=== PATIENT | female | born 1945 | race Caucasian/White ===

== ENCOUNTER 2017-01-02 12:43 | Inpatient (IN) | payer MEDICARE, BC ==
[~2017-01-02] VITALS: Ht 160 cm; Wt 91.0 kg
[~2017-01-02 12:43] MED LIST: LIDOCAINE 4% TOPICAL SOLUTION 50 ML ONE; LIDOCAINE GEL 2%, 5ML ONE
[2017-01-02] MEDS ORDERED: SODIUM CHLORIDE FLUSH 10ML SYR IVF ONE (13:30)
[2017-01-02] MEDS ORDERED: SODIUM CHLORIDE 0.9% 1,000ML IVBOLUS ONE ×2 (13:30→15:30)
[2017-01-02] MEDS ORDERED: CEFTRIAXONE PMX 1GM/50ML 50 ML IVPB ONE (13:30)
[2017-01-02] MEDS ORDERED: ACETAMINOPHEN 500 MG TABLET PO ONE (13:30)
[2017-01-02] MEDS ORDERED: ACETAMINOPHEN 500 MG TABLET ONE (13:34)
[2017-01-02] MEDS ORDERED: CEFTRIAXONE PMX 1GM/50ML 50 ML ONE (13:34)
[2017-01-02] MEDS ORDERED: FLUO20CA19 PO (14:07)
[2017-01-02 14:16] LABS: ASPARTATE AMINO TRANSFERASE 27 U/L (15-37); BLOOD UREA NITROGEN 19 mg/dL (7-18)
[2017-01-02] MEDS ORDERED: AZITHROMYCIN 500 MG in SODIUM CHLORIDE 0.9% 250 ML IV ONE (15:00)
[2017-01-02] MEDS: AZITHROMYCIN 500 MG in SODIUM CHLORIDE 0.9% 250 ML IV SCH (15:58)
[2017-01-02] MEDS: CEFTRIAXONE 1,000 MG in SODIUM CHLORIDE 0.9% 50 ML IV SCH (15:58)
[2017-01-02] MEDS ORDERED: ACETAMINOPHEN 325 MG TABLET PO PRN (16:00)
[2017-01-02] MEDS ORDERED: BISACODYL 10 MG SUPP PR PRN (16:00)
[2017-01-02] MEDS ORDERED: HYDROcodone/APAP 5/325 TABLET PO PRN (16:00)
[2017-01-02] MEDS ORDERED: POLYETHYLENE GLYCOL 17 GM PACKET PO PRN (16:00)
[2017-01-02] MEDS ORDERED: ONDANSETRON 2MG/ML, 2ML IVPush PRN (16:00)
[2017-01-02] MEDS ORDERED: morphine SULFATE 10 MG/ML, 1ML IVPush PRN (16:00)
[2017-01-02] MEDS ORDERED: LABETALOL 5MG/ML 40ML VIAL IVPush PRN (16:00)
[2017-01-02] MEDS ORDERED: DOCUSATE 100 MG CAPSULE PO PRN (16:00)
[2017-01-02] MEDS ORDERED: ALBUTEROL SULFATE 2.5 MG/3 ML ONE (17:04)
[2017-01-02 17:35] VITALS: BP 96/65
[2017-01-02] MEDS: methylPREDNISolone SOD SUCC 125 MG/2 ML IVPush SCH ×2 (18:02→22:07)
[2017-01-02] MEDS: NS + 20MEQ KCL 1,000 ML IV SCH (18:02)
[2017-01-02] MEDS: ENOXAPARIN 40 MG/0.4 ML SQ SCH (18:02)
[2017-01-02 20:00] VITALS: BP 111/73
[2017-01-03 02:37] VITALS: BP 118/74
[2017-01-03] MEDS: methylPREDNISolone SOD SUCC 125 MG/2 ML IVPush SCH ×4 (03:38→21:30)
[2017-01-03] MEDS: NS + 20MEQ KCL 1,000 ML IV SCH (05:17)
[2017-01-03 06:17] LABS: ASPARTATE AMINO TRANSFERASE 24 U/L (15-37); BLOOD UREA NITROGEN 17 mg/dL (7-18)
[2017-01-03 08:05] VITALS: BP 118/71
[2017-01-03] MEDS: FLUOXETINE 20 MG CAPSULE PO SCH (09:15)
[2017-01-03 14:11] VITALS: BP 119/72
[2017-01-03] MEDS: ENOXAPARIN 40 MG/0.4 ML SQ SCH (16:16)
[2017-01-03] MEDS: CEFTRIAXONE 1,000 MG in SODIUM CHLORIDE 0.9% 50 ML IV SCH (16:16)
[2017-01-03] MEDS: AZITHROMYCIN 500 MG in SODIUM CHLORIDE 0.9% 250 ML IV SCH (16:59)
[2017-01-03 17:01] LABS: OCCBLD OBC PASS
[2017-01-03 20:00] VITALS: BP 121/69
[2017-01-04 02:49] VITALS: BP 143/94
[2017-01-04] MEDS: methylPREDNISolone SOD SUCC 125 MG/2 ML IVPush SCH ×3 (04:15→17:09)
[2017-01-04 05:36] LABS: BLOOD UREA NITROGEN 32 mg/dL (7-18)
[2017-01-04 08:00] VITALS: BP 143/94
[2017-01-04] MEDS: FLUOXETINE 20 MG CAPSULE PO SCH (09:01)
[2017-01-04 13:28] VITALS: BP 138/87
[2017-01-04] MEDS: ENOXAPARIN 40 MG/0.4 ML SQ SCH (17:05)
[2017-01-04] MEDS: CEFTRIAXONE 1,000 MG in SODIUM CHLORIDE 0.9% 50 ML IV SCH (17:05)
[2017-01-04] MEDS: AZITHROMYCIN 500 MG in SODIUM CHLORIDE 0.9% 250 ML IV SCH (18:01)
[2017-01-04 20:00] VITALS: BP 152/92
[2017-01-05 02:00] VITALS: BP 153/92
[2017-01-05 06:59] LABS: ASPARTATE AMINO TRANSFERASE 13 U/L (15-37); BLOOD UREA NITROGEN 31 mg/dL (7-18)
[2017-01-05 07:41] VITALS: BP 156/97
[2017-01-05] MEDS: FLUOXETINE 20 MG CAPSULE PO SCH (08:40)
[2017-01-05] MEDS ORDERED: SODIUM CHLORIDE 0.9% 1,000 ML IV SCH (11:30)
[2017-01-05 14:00] VITALS: BP 161/98
[2017-01-05] MEDS: CEFTRIAXONE 1,000 MG in SODIUM CHLORIDE 0.9% 50 ML IV SCH (16:45)
[2017-01-05] MEDS: AZITHROMYCIN 500 MG in SODIUM CHLORIDE 0.9% 250 ML IV SCH (16:46)
[2017-01-05 20:00] VITALS: BP 150/88
[2017-01-06 02:00] VITALS: BP_SYST 131; BP_SYST 137; BP_DIAS 91
[2017-01-06 05:17] LABS: BLOOD UREA NITROGEN 24 mg/dL (7-18)
[2017-01-06] MEDS ORDERED: POTASSIUM CHLORIDE 20 MEQ TAB.ER.PRT PO ONE (07:00)
[2017-01-06] MEDS ORDERED: FUROSEMIDE 40 MG/4 ML IV ONE (07:00)
[2017-01-06 07:20] VITALS: BP 164/89
[2017-01-06] MEDS ORDERED: MIDAZOLAM 1 MG/ML, 2ML IVPush ONE (10:20)
[2017-01-06] MEDS ORDERED: FENTANYL PF 100 MCG/2ML IVPush ONE (10:30)
[2017-01-06] MEDS ORDERED: MIDAZOLAM 1 MG/ML, 5ML ONE (10:30)
[2017-01-06] MEDS ORDERED: FENTANYL PF 100 MCG/2ML ONE (10:30)
[2017-01-06] MEDS ORDERED: SODIUM CHLORIDE 0.9% 1,000 ML IV SCH (11:30)
[2017-01-06 13:36] VITALS: BP 144/47
[2017-01-06] MEDS ORDERED: DOXY100T PO (13:45)
[2017-01-06] MEDS ORDERED: CEFD300C37 PO (13:45)
[2017-01-06] MEDS ORDERED: AMOX1TAB64 PO (13:48)
[2017-01-06] MEDS: FLUOXETINE 20 MG CAPSULE PO SCH (14:51)
== END 2017-01-06 15:05 | disposition home or self-care (01) | DRG 853 ==
LOC: ED 14:45 → 4EST 14:47 → ED 15:17 → CCU 01-06 10:15 → 4EST 01-06 12:19
PROVIDERS: ADMIT Internal Medicine; ATTEND Internal Medicine
PROC: 0B9F8ZZ Drainage of Right Lower Lung Lobe, Via Natural or Artificial Opening Endoscopic (ICD-10-PCS; principal; 2017-01-06)
DX: A41.9 Sepsis, unspecified organism (principal); J18.1 Lobar pneumonia, unspecified organism; N17.0 Acute kidney failure with tubular necrosis; J96.01 Acute respiratory failure with hypoxia; R17 Unspecified jaundice; E44.0 Moderate protein-calorie malnutrition; R73.9 Hyperglycemia, unspecified; E80.6 Other disorders of bilirubin metabolism; F32.9 Major depressive disorder, single episode, unspecified; E21.3 Hyperparathyroidism, unspecified; E55.9 Vitamin D deficiency, unspecified; R91.8 Other nonspecific abnormal finding of lung field; I10 Essential (primary) hypertension; E86.9 Volume depletion, unspecified; Z68.35 Body mass index [BMI] 35.0-35.9, adult; Z80.9 Family history of malignant neoplasm, unspecified; R65.20 Severe sepsis without septic shock; R59.0 Localized enlarged lymph nodes
CPT/HCPCS: 31622; 36415; 71010; 71250; 80048; 80053; 81001; 82040; 82272; 82306; 83605; 83735; 83970; 84145; 85025; 85610; 85730; 87040; 87081; 87324; 93005; 93306; 96365; 96367; J0456; J0696; J1650; J2250; J3010; J3480; J2930; J7030; J7050; J7512